=== PATIENT | male | born 1965 | race Caucasian/White ===

== ENCOUNTER 2017-06-30 10:23 | Day surgery (SDC) | payer BC ==
[~2017-06-30] VITALS: Ht 188 cm; Wt 101.2 kg
[~2017-06-30 10:23] MED LIST: AUGMENTIN1 TA2 PO; FLAGYL500 MG PO; HYDROCODONE1 TABLET PO; LEVOFLOXACIN 7750 M1 PO; LORTAB 5/3251 TAB PO; SIMCOR PO
[2017-06-30 13:56] VITALS: BP 120/76
--- NOTE | 2017-07-07 11:43 | Operative Note ---
Removal of Neoplasm Date of procedure: 06/30/17 Pre-op diagnosis: Epidermoid cyst forehead 2.8cm Post-op diagnosis: Same Surgeon: Mark Shen Anesthesia type: Lo-Mac Description of procedure: The face was prepped and draped the eyes were protected with Steri-Strips. The perilesional area was infiltrated with 3 mL of 2 percent lidocaine containing epinephrine. An incision was made over the cystic area, and using meticulous dissection with scalpel and tenotomy scissors the lesion was removed in entirety and submitted. It measured over 2.8 cm. Bleeding was less than 5 mL and stopped with bipolar cautery. Surgicel Snow was placed in the defect. And the tissue rearrangement geometric plastic repair was done with interrupted 5-0 Vicryl and 5-0 nylon sutures. And the patient was sent to recovery in good general condition. EBL (ml): 1 Specimens obtained: Same as above at 1142
== END 2017-06-30 13:00 | disposition home or self-care (01) ==
LOC: SDC 10:23
PROVIDERS: Otolaryngology
PROC: 0HB1XZX Excision of Face Skin, External Approach, Diagnostic (ICD-10-PCS; principal; 2017-06-30 12:00)
DX: L72.0 Epidermal cyst (principal)